=== PATIENT | male | born 1930 | race Caucasian/White ===

== ENCOUNTER 2017-03-28 08:04 | Emergency (ER) | payer MEDICARE, OTHER ==
[~2017-03-28] VITALS: Ht 185.4 cm; Wt 112.3 kg
[~2017-03-28 08:04] MED LIST: ASCO500T8 PO; CALC-504 PO; CETI10CA19 PO; CHOL100047 PO; FLUT16SP2 EA NOSTRIL; GLIP5TAB11 PO; GLUC100015 PO; LACT1CAP73 PO; LEVO25TA7 PO; MAGN400T25 PO; METF500T4 PO; MULT-1243 PO; NITR0.4T38 SL; OMEG100T PO; SIMV80TA62 PO; SOTA80TA22 PO; VITA-115 PO; VITA-282 PO; WARF5TAB76 PO
[2017-03-28 08:05] VITALS: Ht 185.4 cm; Wt 112.3 kg
--- OUTSIDE RECORDS SUMMARY | 2017-03-28 08:09 | XMS REPORT | Continuity of Care Document ---
Author Author [facility] Organization [facility] Address Unknown Phone Unavailable Support Name Relationship Address Phone GINNA MANNING MD Caregiver [address], [place] [phone] CATHLEEN MERCEDES MD Caregiver [address] [facility] [address] [place] [phone] MIGUEL HOGAN Next Of Kin [address] [place] [address] Insurance Providers Payer Name Policy Number Subscriber Name Relationship Medicare [id number] Jeremy Thorpe 20 Self [employer] [id number] Jeremy Thorpe 20 Self Advance Directives Directive Response Recorded Date/Time Dr Ordered Resuscitation Status Full Code 01/30/15 1:08pm Problems No known problems or medical conditions. Medications Medication Dose Route Sig Days/Qty Instructions Order Date Discontinued Date Status Gemfibrozil 600 Mg PO TWICE A DAY 02/01/12 06/06/12 Discontinued Simvastatin 80 Mg PO BEDTIME 02/01/12 03/22/13 Discontinued Glyburide 2.5 Mg PO TWICE A DAY 02/01/12 07/03/12 Discontinued Cetirizine Hcl 10 Mg PO TWICE A DAY 02/01/12 05/15/13 Discontinued Allopurinol 300 Mg PO every other day 06/06/12 03/21/13 Discontinued Warfarin Sodium 5 Mg PO WED,WED,WED,Wed06/06/12 11/14/12 Discontinued Warfarin Sodium 7.5 Mg PO Wednesday, 06/06/12 03/21/13 Discontinued Fluticasone Propionate 1,650 Mcg NS DAILY 06/06/12 03/21/13 Discontinued Beta-Carotene 25,000 Unit PO DAILY 06/06/12 05/16/13 Discontinued Folic Acid/Vitamin B Comp W-C 400 Mcg PO DAILY 06/06/12 03/21/13 Discontinued Glucosamine Hcl/Chondr Álvarez A Na 1 Tab PO TWICE A DAY 06/06/12 Discontinued Multivitamins W-Minerals/Lut 1 Tab PO TWICE A DAY 0.5 Qty 06/06/1206/20 Discontinued Magnesium Oxide 400 Mg PO DAILY 06/06/12 Active Diphenhydramine Hcl 25 Mg PO NEEDED 07/03/12 11/14/12 Discontinued Glipizide 5 Mg PO AC BREAKFAST 07/03/12 05/15/13 Discontinued Daptomycin 500 Mg IV DAILY 07/03/12 11/14/12 Discontinued Prednisone 30 Tab PO DAILY 07/03/12 11/14/12 Discontinued Warfarin Sodium 1 Mg PO DAILY 07/25/12 11/14/12 Discontinued Metformin Hcl 500 Mg PO DAILY 07/25/12 08/08/14 Discontinued Cephalexin Monohydrate 250 Mg PO FOUR TIMES DAILY 11/14/12 03/21/13 Discontinued Warfarin Sodium 5 Mg PO MoWeThFrSu 03/21/13 05/15/13 Discontinued Vitamin B Comp W-C 1 Tab PO DAILY 03/21/13 Active Warfarin Sodium 7.5 Mg PO TuSa 03/22/13 05/15/13 Discontinued [Nitroglycerin] SL NEEDED 03/22/13 05/15/13 Discontinued Simvastatin 40 Mg PO BEDTIME 03/22/13 05/15/13 Discontinued Glipizide 2.5 Mg PO EVENING 03/22/13 05/15/13 Discontinued Glyburide 10 Mg PO TWICE A DAY 05/15/13 01/22/14 Discontinued Simvastatin 80 Mg PO BEDTIME 05/15/13 Active Cetirizine Hcl 10 Mg PO DAILY 05/15/13 Active Nitroglycerin 0.4 Mg SL EVERY 5 MINUTES X 3 PRN ANGINA 05/16/13 Active Levothyroxine Sodium 25 Mcg PO BEFORE BREAKFAST 1 Qty 01/22/14 Active Vitamin E Mixed 400 Unit PO DAILY 01/22/14 Active Calcium Carbonate/Vitamin D3 1 Tab PO DAILY 01/22/14 Active Sotalol HCl 40 Mg PO TWICE A DAY 05/30/14 Active Multivits-Min/FA/Lycopene/Lut 1 Tab PO DAILY 01/30/15 Active Warfarin Sodium 5 Mg PO GIVE AT NOON Take by mouth, 1 time a day (at NOON). 01/30/15 Active Fluticasone Propionate 2 Supai EA NOSTRIL DAILY 01/30/15 Active Glipizide 1 Tab PO EVERY EVENING 01/30/15 Active Glipizide 2 Tab PO AM 01/30/15 Active Glucosamine Sulfate 2Kcl 1 Tab PO TWICE A DAY 01/30/15 Active Metformin HCl 500 Mg PO GIVE WITH BREAKFAST 01/30/15 Active Addison-3 Fatty Acids 150 Mg PO TWICE A DAY 01/30/15 Active Lactobacillus Combination No.4 1 Cap PO DAILY 01/30/15 Active Cholecalciferol (Vitamin D3) 500 Unit PO TWICE A DAY 01/30/15 Active Ascorbic Acid 1 Tab PO DAILY 01/30/15 Active Social History Social History Problem Response Recorded Date/Time Chewing Tobacco Status No 01/19/2014 3:53pm Hx Substance Use No 08/08/2014 2:20pm Hx Alcohol Use No 08/08/2014 2:20pm Has the pt used tobacco in the last 12 months No 08/08/2014 2:20pm Query Response Start Date Stop Date Smoking Status Former smoker Hospital Discharge Instructions No hospital discharge instructions. Plan of Care No plan of care. Functional Status No functional status results. Allergies, Adverse Reactions, Alerts Allergen Type Severity Reaction Status Last Updated Aspirin Allergy Intermediate HIVES Active 08/08/14 Vancomycin Allergy Severe HIVES Active 08/08/14 Immunizations Name Given Type Hx Influenza Vaccination Y 07/16/14 Historical Hx Pneumococcal Vaccination Y FALL 2010 Historical Hx Influenza Vaccination Y 07/16/14 Historical Vital Signs Acute Vital Signs Vital Response Date/Time Temperature (Fahrenheit) 98.2 deg F (96.8 - 99.1) Temperature (Calculated Celsius) 36.62059 degrees C (36.0 - 37.3) Temperature Source Temporal Pulse Rate (adult) 60 bpm (60 - 100) Respiratory Rate 16 breaths/min (10 - 20) O2 Sat by Pulse Oximetry 99 % (90 - 100) Oxygen Delivery Method Room Air Blood Pressure 150/68 mm Hg Blood Pressure Source Automatic Cuff Height 6 ft 2 in Weight 264 lb Body Mass Index 33.0 kg/m^2 Results Test Source Date Result Interp. Ref. Range Comments Activated Partial Thromboplast Time July 03, 2012 9:33am 40.9 SEC H 24 -36 Alanine Aminotransferase (ALT/SGPT) November 14, 2012 6:15pm 34 U/L N 21- 72 Albumin November 14, 2012 6:15pm 3.8 G/DL N 3.5-5.0 Albumin/Globulin Ratio November 14, 2012 6:15pm 1.3 RATIO N 1.1-2.2 Alkaline Phosphatase November 14, 2012 6:15pm 81 U/L N 38-126 Amylase Level July 03, 2012 9:50am 43 U/L N 30-110 Anion Gap August 08, 2014 1:54pm 12 MEQ/L N 5-15 COMMENT NURSE WILL CALL WHEN PATIENT ARRIVES Aspartate Amino Transf (AST/SGOT) November 14, 2012 6:15pm 27 U/L N 17- 59 BUN/Creatinine Ratio August 08, 2014 1:54pm 19 RATIO N 6-26 COMMENT NURSE WILL CALL WHEN PATIENT ARRIVES Band Neutrophils # June 21, 2014 2:45pm 0.4 T/MM3 - Band Neutrophils % June 21, 2014 2:45pm 6.0 % N 0-6 Basophils # (Auto) August 08, 2014 1:54pm 0.0 T/MM3 N 0-0.2 COMMENT NURSE WILL CALL WHEN PATIENT ARRIVES Basophils (%) (Auto) August 08, 2014 1:54pm 0.0 % N 0-2 COMMENT NURSE WILL CALL WHEN PATIENT ARRIVES Blood Urea Nitrogen August 08, 2014 1:54pm 17.0 MG/DL N 9-20 COMMENT NURSE WILL CALL WHEN PATIENT ARRIVES C-Reactive Protein July 12, 2014 7:20am 8.1 MG/L N 0-9 Calcium Level August 08, 2014 1:54pm 9.2 MG/DL N 8.4-10.2 COMMENT NURSE WILL CALL WHEN PATIENT ARRIVES Calculated Osmolality August 08, 2014 1:54pm 275 MOSM/KG N 261-280 COMMENT NURSE WILL CALL WHEN PATIENT ARRIVES Carbon Dioxide Level August 08, 2014 1:54pm 25 MEQ/L N 22-30 COMMENT NURSE WILL CALL WHEN PATIENT ARRIVES Chemistry Specimen Hemolysis August 08, 2014 1:54pm < 15 0-25 0-25: No Hemolysis.26-70: Slight Hemolysis - can falsely elevate K and Urine Protein. 71-285: Moderate Hemolysis - can falsely elevate K, Troponin I, CA 19-9, PTH, CSF GLucose, and Urine Protein, and can falsely decrease Phenytoin. 286-999: Gross Hemolysis - can falsely elevate K, Troponin I, CA 19-9, PTH, CSF Glucose, and Urine Protine, and can falsely decrease Phenytoin. Recommend specimen recollection. Chloride Level August 08, 2014 1:54pm 103 MEQ/L N 98-107 COMMENT NURSE WILL CALL WHEN PATIENT ARRIVES Conjugated Bilirubin July 03, 2012 9:50am 0.00 MG/DL N 0.00-0.30 Creatine Kinase MB February 03, 2012 3:20am 0.6 NG/ML N 0-3.4 Creatinine August 08, 2014 1:54pm 0.9 MG/DL N 0.8-1.5 COMMENT NURSE WILL CALL WHEN PATIENT ARRIVES Eosinophils # (Auto) August 08, 2014 1:54pm 0.3 T/MM3 N 0-0.5 COMMENT NURSE WILL CALL WHEN PATIENT ARRIVES Eosinophils # (Manual) June 21, 2014 2:45pm 0.4 T/MM3 N 0-0.5 Eosinophils % (Manual) June 21, 2014 2:45pm 5.0 % H 0-4 Eosinophils (%) (Auto) August 08, 2014 1:54pm 4.8 % H 0-4 COMMENT NURSE WILL CALL WHEN PATIENT ARRIVES Erythrocyte Sedimentation Rate July 12, 2014 7:20am 9 MM/HR N 0-15 Free Thyroxine June 07, 2012 5:10am 1.32 NG/DL N 0.78-2.19 COMMENT USE BLOOD IN LAB Globulin November 14, 2012 6:15pm 3.0 G/DL N 2.4-3.6 Glomerular Filtration Rate Calc August 08, 2014 1:54pm 81 - COMMENT NURSE WILL CALL WHEN PATIENT ARRIVES Glucometer January 31, 2015 7:11am 192 mg/dL H 75-110 Glucose Level August 08, 2014 1:54pm 169 MG/DL H 75-110 COMMENT NURSE WILL CALL WHEN PATIENT ARRIVES Hematocrit August 08, 2014 1:54pm 37.2 % L 41-53 COMMENT NURSE WILL CALL WHEN PATIENT ARRIVES Hemoglobin August 08, 2014 1:54pm 12.4 GM/DL L 13.5-17.5 COMMENT NURSE WILL CALL WHEN PATIENT ARRIVES Icterus Index August 08, 2014 1:54pm < 2 0-7 COMMENT NURSE WILL CALL WHEN PATIENT ARRIVES Immature Granulocyte # (Auto) August 08, 2014 1:54pm 0.01 T/MM3 N 0.00- 0.03 COMMENT NURSE WILL CALL WHEN PATIENT ARRIVES Immature Granulocyte % (Auto) August 08, 2014 1:54pm 0.2 % N 0.0-0.5 COMMENT NURSE WILL CALL WHEN PATIENT ARRIVES Lipase November 14, 2012 6:15pm 102 U/L N 23-300 Lymphocytes # (Auto) August 08, 2014 1:54pm 1.3 T/MM3 N 1-4.8 COMMENT NURSE WILL CALL WHEN PATIENT ARRIVES Lymphocytes # (Manual) June 21, 2014 2:45pm 0.2 T/MM3 L 1-4.8 Lymphocytes % (Manual) June 21, 2014 2:45pm 3.0 % L 23-45 Lymphocytes (%) (Auto) August 08, 2014 1:54pm 22.4 % L 23-45 COMMENT NURSE WILL CALL WHEN PATIENT ARRIVES Magnesium Level January 23, 2014 5:18am 1.9 MG/DL N 1.6-2.3 Mean Corpuscular Hemoglobin August 08, 2014 1:54pm 30.2 UUG N 26-34 COMMENT NURSE WILL CALL WHEN PATIENT ARRIVES Mean Corpuscular Hemoglobin Concent August 08, 2014 1:54pm 33.3 GM/DL N 31-37 COMMENT NURSE WILL CALL WHEN PATIENT ARRIVES Mean Corpuscular Volume August 08, 2014 1:54pm 90.5 UM3 N 80-100 COMMENT NURSE WILL CALL WHEN PATIENT ARRIVES Mean Platelet Volume August 08, 2014 1:54pm 10.2 UM3 N 9.4-12.4 COMMENT NURSE WILL CALL WHEN PATIENT ARRIVES Monocytes # (Auto) August 08, 2014 1:54pm 0.6 T/MM3 N 0-0.8 COMMENT NURSE WILL CALL WHEN PATIENT ARRIVES Monocytes # (Manual) June 21, 2014 2:45pm 0.6 T/MM3 N 0-0.8 Monocytes % (Manual) June 21, 2014 2:45pm 9.0 % N 0-9.0 Monocytes (%) (Auto) August 08, 2014 1:54pm 9.7 % H 0-9.0 COMMENT NURSE WILL CALL WHEN PATIENT ARRIVES Neutrophils # (Auto) August 08, 2014 1:54pm 3.7 T/MM3 N 1.8-7.7 COMMENT NURSE WILL CALL WHEN PATIENT ARRIVES Neutrophils # (Manual) June 21, 2014 2:45pm 3.5 T/MM3 N 1.8-7.7 Neutrophils % (Manual) June 21, 2014 2:45pm 48.0 % N 33-66 Neutrophils (%) (Auto) August 08, 2014 1:54pm 62.9 % N 33-66 COMMENT NURSE WILL CALL WHEN PATIENT ARRIVES Platelet Count August 08, 2014 1:54pm 184 T/MM3 N 130-400 COMMENT NURSE WILL CALL WHEN PATIENT ARRIVES Potassium Level August 08, 2014 1:54pm 4.2 MEQ/L N 3.6-5 COMMENT NURSE WILL CALL WHEN PATIENT ARRIVES Prothromb Time International Ratio May 31, 2014 9:50am 1.23 H 0.81- 1.09 THERAPUTIC RANGE=2.00-3.00 FOR ANTI-THROMBOSIS THERAPUTIC RANGE=2.50- 3.50 FOR IMPLANTED VALVE RDW Standard Deviation August 08, 2014 1:54pm 44.0 FL N 36.9-50.2 COMMENT NURSE WILL CALL WHEN PATIENT ARRIVES Reactive Lymphocytes # June 21, 2014 2:45pm 2.1 T/MM3 H 0-0 Reactive Lymphocytes % June 21, 2014 2:45pm 29.0 % H 0-0 Red Blood Count August 08, 2014 1:54pm 4.11 M/MM3 L 4.50-5.90 COMMENT NURSE WILL CALL WHEN PATIENT ARRIVES Sodium Level August 08, 2014 1:54pm 140 MEQ/L N 134-144 COMMENT NURSE WILL CALL WHEN PATIENT ARRIVES Thyroid Stimulating Hormone (TSH) June 07, 2012 5:10am 2.46 MIU/L N 0.47 -4.68 COMMENT USE BLOOD IN LAB Total Bilirubin November 14, 2012 6:15pm 0.40 MG/DL N 0.20-1.30 Total Creatine Kinase May 16, 2014 10:30am 45 U/L L 55-170 Total Protein November 14, 2012 6:15pm 6.8 G/DL N 6.3-8.2 Troponin I February 03, 2012 9:30am 0.018 ng/ml N 0-0.12 Turbidity August 08, 2014 1:54pm < 20 0-20 COMMENT NURSE WILL CALL WHEN PATIENT ARRIVES Unconjugated Bilirubin July 03, 2012 9:50am 0.00 MG/DL N 0.00-1.10 Urinalysis Comment November 14, 2012 7:55pm Microscopic not ind. - Has specimen been collected/obtained? Y Urine Bilirubin November 14, 2012 7:55pm Negative - Has specimen been collected/obtained? Y Urine Blood November 14, 2012 7:55pm Negative - Has specimen been collected/obtained? Y Urine Collection Type November 14, 2012 7:55pm Voided - Has specimen been collected/obtained? Y Urine Color November 14, 2012 7:55pm Yellow - Has specimen been collected/obtained? Y Urine Glucose (UA) November 14, 2012 7:55pm Negative - Has specimen been collected/obtained? Y Urine Ketones November 14, 2012 7:55pm Negative - Has specimen been collected/obtained? Y Urine Leukocyte Esterase November 14, 2012 7:55pm Negative - Has specimen been collected/obtained? Y Urine Microscopic Not Indicated February 01, 2012 2:35pm Not indicated - Has specimen been collected/obtained? Y Urine Nitrite November 14, 2012 7:55pm Negative - Has specimen been collected/obtained? Y Urine Protein November 14, 2012 7:55pm Negative - Has specimen been collected/obtained? Y Urine Specific [place] November 14, 2012 7:55pm 1.010 L - Has specimen been collected/obtained? Y Urine Turbidity November 14, 2012 7:55pm Clear - Has specimen been collected/obtained? Y Urine Urobilinogen November 14, 2012 7:55pm Normal EU/DL - Has specimen been collected/obtained? Y Urine pH November 14, 2012 7:55pm 7.0 - Has specimen been collected/ obtained? Y Vancomycin Level Trough June 28, 2012 8:10am 10.33 UG/ML L 15-20 White Blood Count August 08, 2014 1:54pm 5.9 T/MM3 N 4.5-11.0 COMMENT NURSE WILL CALL WHEN PATIENT ARRIVES Gram Stain Foot, Surgical Site-Right May 31, 2014 12:40pm Gram Stain Foot, Non-Surgical Site-Right May 15, 2014 12:00pm Name: JEREMY THORPE Unit #: [id number] : 1930 Sex: M Loc / Svc: [facility] DOS: 01/21/15 Signed Report #: [id number] DIAGNOSTIC IMAGING REPORT TYPE OF EXAM: ESOPHOGRAM Dictated By: MCKENNA MERCEDES MD ESOPHAGRAM: Technique: After ingesting air crystals, the patient swallowed thick and thin barium without difficulty. Fluoroscopic imaging was obtained in the upright LPO , supine AP, and right lateral positions. Findings: There is delayed emptying of barium from the esophagus to the stomach. No obvious stricture was identified at the GE junction during this study, however, an EGD could be performed for further evaluation. The remainder of the esophagus is negative. There is no filling defect to suggest a mass. The cricopharyngeus muscle relaxes completely. There is no Zenker's diverticulum. No hiatal hernia or gastroesophageal reflux was visualized. Impression: Delayed emptying of barium from the esophagus to the stomach. This could represent a stricture. An EGD could be performed for further evaluation. Mckenna Hernandez RPA/RA performed this under my direct supervision. . Procedures Procedure Status Date Provider(s) CONTRAST X-RAY ESOPHAGUS completed 01/21/15 Esophagogastroduodenoscopy (EGD) with heater probe therapy completed CATHLEEN MERCEDES MD Encounters Encounter Location Date/Time Registered [facility] 01/21/15 7:55am
--- OUTSIDE RECORDS SUMMARY | 2017-03-28 08:09 | XMS REPORT | Continuity of Care Document ---
Author Author [facility] Organization [facility] Address Unknown Phone Unavailable Support Name Relationship Address Phone GINNA MANNING MD Caregiver [address] [place] [address] NARESH SANFORD MD Caregiver [facility] [address] [facility] [place], [place] [address] MIGUEL HOGAN Next Of Kin [address] [place] [address] Insurance Providers Payer Name Policy Number Subscriber Name Relationship Medicare [id number] Jeremy Thorpe 20 Self [place] [id number] Jeremy Thorpe 20 Self Problems No known problems or medical conditions. [...] Oxide 400 Mg PO DAILY 06/06/12 Active Cholecalciferol (Vitamin D3) 1,000 Unit PO DAILY 06/06/12 Active Diphenhydramine Hcl 25 Mg PO NEEDED 07/03/12 11/14/12 Discontinued Glipizide 5 Mg PO AC BREAKFAST 07/03/12 05/15/13 Discontinued Daptomycin 500 Mg IV DAILY 07/03/12 11/14/12 Discontinued Prednisone 30 Tab PO DAILY 07/03/12 11/14/12 Discontinued Warfarin Sodium 1 Mg PO DAILY 07/25/12 11/14/12 Discontinued Metformin Hcl 500 Mg PO DAILY 07/25/12 Active Cephalexin Monohydrate 250 Mg PO FOUR TIMES [...] PO TWICE A DAY 05/15/13 01/22/14 Discontinued Multivitamins 1 Tab PO DAILY 05/15/13 Active Simvastatin 40 Mg PO BEDTIME 05/15/13 Active Cetirizine Hcl 10 Mg PO DAILY 05/15/13 Active Warfarin Sodium 5 Mg PO DAILY 7.5 MG 05/15/13 Active Ubidecarenone 100 Mg PO DAILY 05/16/13 Active Ascorbic Acid 1,000 Mg PO TWICE A DAY 05/16/13 Active Glucosa Álvarez 2KCL/Chondroitin Álvarez 1,200 Mg PO TWICE A DAY 05/16/13 Active Nitroglycerin 0.4 Mg SL NEEDED 05/16/13 Active Fluticasone Propionate 2 [place] NS DAILY 01/22/14 Active Glipizide 5 Mg PO BEFORE BREAKFAST 01/22/14 Active Glipizide 2.5 Mg PO AC SUPPER 01/22/14 Active Levothyroxine Sodium 25 Mcg PO BEFORE BREAKFAST 1 Qty 01/22/14 Active Lactobacillus Rhamnosus Gg 1 Each PO DAILY 01/22/14 Active Fish Oil/Fat No.8/Hrb Comb.137 1,200 Mg PO TWICE A DAY 01/22/14 Active Vitamin E Mixed 400 Unit PO DAILY 01/22/14 Active Calcium Carbonate/Vitamin D3 1 Tab PO TWICE A DAY 01/22/14 Active Sotalol HCl 40 Mg PO TWICE A DAY 05/30/14 Active Social History Social History Problem Response Recorded Date/Time Smoking Status Former smoker 05/16/2014 2:35pm When did patient STOP smoking? 40 YEARS AGO 05/16/2014 2:35pm Chewing Tobacco Status No 01/19/2014 3:53pm Hx Substance Use No 01/19/2014 3:53pm Hx Alcohol Use No 01/19/2014 3:53pm Has the pt used tobacco in the last 12 months No 05/31/2014 10:04am Query Response Start Date Stop Date Smoking Status Former smoker Hospital Discharge Instructions No hospital discharge instructions. Plan of Care No plan of care. Functional Status No functional status results. Allergies, Adverse Reactions, Alerts Allergen Type Severity Reaction Status Last Updated Aspirin Allergy Intermediate HIVES Active 05/16/13 Vancomycin Allergy Severe HIVES Active 05/16/13 Immunizations Name Given Type Hx Influenza Vaccination Y 08/2013 Historical Hx Pneumococcal Vaccination Y FALL 2010 Historical Hx Influenza Vaccination Y 08/2013 Historical Vital Signs Acute Vital Signs Vital Response Date/Time Temperature (Fahrenheit) 96.6 deg F (96.8 - 99.1) Temperature (Calculated Celsius) 35.05601 degrees C (36.0 - 37.3) Temperature Source Temporal Pulse Rate (adult) 62 bpm (60 - 100) Respiratory Rate 16 breaths/min (10 - 20) O2 Sat by Pulse Oximetry 97 % (90 - 100) Oxygen Delivery Method Room Air Blood Pressure 144/83 mm Hg Blood Pressure Source Automatic Cuff Height 6 ft 2 in Weight 245 lb Body Mass Index 31.0 kg/m^2 Results Test Source Date Result Interp. [...] 9:50am 43 U/L N 30-110 Anion Gap June 21, 2014 2:45pm 10 MEQ/L N 5-15 Aspartate Amino Transf (AST/SGOT) November 14, 2012 6:15pm 27 U/L N 17- 59 BUN/Creatinine Ratio June 21, 2014 2:45pm 23 RATIO N 6-26 Band Neutrophils # June 21, 2014 2:45pm 0.4 T/MM3 - Band Neutrophils % June 21, 2014 2:45pm 6.0 % N 0-6 Basophils # (Auto) May 31, 2014 9:50am 0.0 T/MM3 N 0-0.2 COMMENT NSC WILL CALL Basophils (%) (Auto) May 31, 2014 9:50am 0.0 % N 0-2 COMMENT NSC WILL CALL Blood Urea Nitrogen June 21, 2014 2:45pm 23.0 MG/DL H 9-20 C-Reactive Protein June 21, 2014 2:45pm 6.8 MG/L N 0-9 Calcium Level June 21, 2014 2:45pm 9.0 MG/DL N 8.4-10.2 Calculated Osmolality June 21, 2014 2:45pm 275 MOSM/KG N 261-280 Carbon Dioxide Level June 21, 2014 2:45pm 29 MEQ/L N 22-30 Chemistry Specimen Hemolysis June 21, 2014 2:45pm < 15 0-25 0-25: No Hemolysis.26-70: Slight [...] decrease Phenytoin. Recommend specimen recollection. Chloride Level June 21, 2014 2:45pm 101 MEQ/L N 98-107 Conjugated Bilirubin July 03, 2012 9:50am 0.00 MG/DL N 0.00-0.30 Creatine Kinase MB February 03, 2012 3:20am 0.6 NG/ML N 0-3.4 Creatinine June 21, 2014 2:45pm 1.0 MG/DL N 0.8-1.5 Eosinophils # (Auto) May 31, 2014 9:50am 0.2 T/MM3 N 0-0.5 COMMENT NSC WILL CALL Eosinophils # (Manual) June 21, 2014 2:45pm 0.4 T/MM3 N 0-0.5 Eosinophils % (Manual) June 21, 2014 2:45pm 5.0 % H 0-4 Eosinophils (%) (Auto) May 31, 2014 9:50am 3.8 % N 0-4 COMMENT NSC WILL CALL Erythrocyte Sedimentation Rate June 21, 2014 2:45pm 10 MM/HR N 0-15 Free Thyroxine June 07, 2012 5:10am 1.32 NG/DL N 0.78-2.19 COMMENT USE BLOOD IN LAB Globulin November 14, 2012 6:15pm 3.0 G/DL N 2.4-3.6 Glomerular Filtration Rate Calc June 21, 2014 2:45pm 72 - Glucometer May 31, 2014 1:40pm 171 mg/dL H 75-110 Glucose Level June 21, 2014 2:45pm 130 MG/DL H 75-110 Hematocrit June 21, 2014 2:45pm 37.8 % L 41-53 Hemoglobin June 21, 2014 2:45pm 12.7 GM/DL L 13.5-17.5 Icterus Index June 21, 2014 2:45pm < 2 0-7 Immature Granulocyte # (Auto) May 31, 2014 9:50am 0.01 T/MM3 N 0.00- 0.03 COMMENT NSC WILL CALL Immature Granulocyte % (Auto) May 31, 2014 9:50am 0.2 % N 0.0-0.5 COMMENT NSC WILL CALL Lipase November 14, 2012 6:15pm 102 U/L N 23-300 Lymphocytes # (Auto) May 31, 2014 9:50am 1.4 T/MM3 N 1-4.8 COMMENT NSC WILL CALL Lymphocytes # (Manual) June 21, 2014 2:45pm 0.2 T/MM3 L 1-4.8 Lymphocytes % (Manual) June 21, 2014 2:45pm 3.0 % L 23-45 Lymphocytes (%) (Auto) May 31, 2014 9:50am 22.1 % L 23-45 COMMENT NSC WILL CALL Magnesium Level January 23, 2014 5:18am 1.9 MG/DL N 1.6-2.3 Mean Corpuscular Hemoglobin June 21, 2014 2:45pm 30.2 UUG N 26-34 Mean Corpuscular Hemoglobin Concent June 21, 2014 2:45pm 33.6 GM/DL N 31-37 Mean Corpuscular Volume June 21, 2014 2:45pm 90.0 UM3 N 80-100 Mean Platelet Volume June 21, 2014 2:45pm 9.9 UM3 N 9.4-12.4 Monocytes # (Auto) May 31, 2014 9:50am 0.6 T/MM3 N 0-0.8 COMMENT NSC WILL CALL Monocytes # (Manual) June 21, 2014 2:45pm 0.6 T/MM3 N 0-0.8 Monocytes % (Manual) June 21, 2014 2:45pm 9.0 % N 0-9.0 Monocytes (%) (Auto) May 31, 2014 9:50am 9.1 % H 0-9.0 COMMENT NSC WILL CALL Neutrophils # (Auto) May 31, 2014 9:50am 4.1 T/MM3 N 1.8-7.7 COMMENT NSC WILL CALL Neutrophils # (Manual) June 21, 2014 2:45pm 3.5 T/MM3 N 1.8-7.7 Neutrophils % (Manual) June 21, 2014 2:45pm 48.0 % N 33-66 Neutrophils (%) (Auto) May 31, 2014 9:50am 64.8 % N 33-66 COMMENT NSC WILL CALL Platelet Count June 21, 2014 2:45pm 235 T/MM3 N 130-400 Potassium Level June 21, 2014 2:45pm 4.4 MEQ/L N 3.6-5 Prothromb Time International Ratio May 31, 2014 9:50am 1.23 H 0.81- 1.09 THERAPUTIC RANGE=2.00-3.00 FOR ANTI-THROMBOSIS THERAPUTIC RANGE=2.50- 3.50 FOR IMPLANTED VALVE RDW Standard Deviation June 21, 2014 2:45pm 43.1 FL N 36.9-50.2 Reactive Lymphocytes # June 21, 2014 2:45pm 2.1 T/MM3 H 0-0 Reactive Lymphocytes % June 21, 2014 2:45pm 29.0 % H 0-0 Red Blood Count June 21, 2014 2:45pm 4.20 M/MM3 L 4.50-5.90 Sodium Level June 21, 2014 2:45pm 140 MEQ/L N 134-144 Thyroid Stimulating Hormone (TSH) June 07, 2012 5:10am 2.46 MIU/L N 0.47 -4.68 COMMENT USE BLOOD IN LAB Total Bilirubin November 14, 2012 6:15pm 0.40 MG/DL N 0.20-1.30 Total Creatine Kinase May 16, 2014 10:30am 45 U/L L 55-170 Total Protein November 14, 2012 6:15pm 6.8 G/DL N 6.3-8.2 Troponin I February 03, 2012 9:30am 0.018 ng/ml N 0-0.12 Turbidity June 21, 2014 2:45pm < 20 0-20 Unconjugated Bilirubin July 03, 2012 9:50am 0.00 [...] Has specimen been collected/obtained? Y Urine Specific [place] November 14, 2012 7:55pm 1.010 L - [...] 10.33 UG/ML L 15-20 White Blood Count June 21, 2014 2:45pm 7.2 T/MM3 N 4.5-11.0 Gram Stain Foot, Non-Surgical Site-Right May 15, 2014 12:00pm Gram Stain Foot, Surgical Site-Right May 31, 2014 12:40pm Name: JEREMY THORPE Unit #: [id number] : 1930 Sex: M Loc / Svc: SHANIA DOS: 05/16/14 Signed Report #: [id number] DIAGNOSTIC IMAGING REPORT TYPE OF EXAM: PICC LINE INSERTION w FLUORO Dictated By: MCKENNA MERCEDES MD PICC Line insertion: After discussing the details of the procedure, including risks, the patient wished to proceed. Informed consent was obtained. Sterile technique, local Xylocaine anesthesia, and sonographic guidance was used to access the right basilic vein. A .018 guidewire was advanced into the vein. Then using fluoroscopic guidance, a single lumen 4-Angolan PICC line was advanced with the tip placed within the SVC. Internal catheter length is 46 cm. A fluoroscopic image was then taken and archived. I was able to aspirate blood and inject freely through the port. The procedure was completed without complication. Following this, the patient was escorted to infusion therapy for his treatment. Impression: Successful right-sided PICC line placement in the right basilic vein. Mckenna Hernandez RPA/RA performed this under my personal supervision. . Procedures Procedure Status Date Provider(s) BROOK BONE 20 SQ CM/< completed 05/31/14 CHAVA MASON MD, FACS, CWS Encounters Encounter Location Date/Time Discharged [facility] 06/21/14 3:00pm Registered Clinic [facility] 06/19/14 8:21am Registered Clinic [facility] 06/15/14 9:23am Registered Clinic [facility] 06/13/14 9:05am Registered Clinic [facility] 06/12/14 8:35am Registered Clinic [facility] 06/05/14 8:27am Registered Clinic [facility] 05/30/14 8:57am Registered Clinic [facility] 05/29/14 8:23am Registered Clinic [facility] 05/22/14 1:29pm Registered Clinic [facility] 05/16/14 8:55am Registered Clinic [facility] 05/15/14 12:18pm Registered Clinic [facility] 05/15/14 11:08am Registered Clinic [facility] 05/08/14 8:30am Registered Clinic [facility] 04/24/14 8:31am Registered Clinic [facility] 04/10/14 11:26am Registered Clinic [facility] 04/04/14 10:50am Registered Clinic [facility] 03/28/14 8:59am
--- OUTSIDE RECORDS SUMMARY | 2017-03-28 08:09 | XMS REPORT | Summary of Care ---
Author Author Robbi Butt M.D. Organization Unknown Address [address] [place] [address] [place] [address] Phone Unavailable Care Team Providers Care Municipal Court Judge Name Role Phone Robbi Butt M.D. Unavailable Unavailable Kevin Yin Unavailable Unavailable Functional Status Name Dates Details Functional status health issues are not documented Status: Name Dates Details Cognitive status health issues are not documented Status: Problems Name Dates Details H/O prostate cancer (V10.46, Z85.46) Status: Active H/O therapeutic radiation (V15.3, Z92.3) Status: Active BPH with obstruction/lower urinary tract symptoms (600.01, N40.1) Status: Active Medications Name Dates Details Warfarin Sodium 5 MG Oral Tablet Active Vitamin D3 1000 UNIT Oral Tablet * Refills: 0 Active Oyster Shell Calcium + D 500-125 MG-IU TABS * Refills: 0 Active Fish Oil CAPS * Refills: 0 Active Centrum Silver Oral Tablet Chewable * Refills: 0 Active Glucosamine Chondr Complex CAPS * Refills: 0 Active Super B Complex TABS * Refills: 0 Active Vitamin E 400 UNIT Oral Capsule * Refills: 0 Active Vitamin C 500 MG Oral Capsule * Refills: 0 Active Flonase 50 MCG/ACT SUSP * Refills: 0 Active Zyrtec 10 MG TABS * Refills: 0 Active Beta Carotene 56883 UNIT Oral Capsule * Refills: 0 Active GlipiZIDE 5 MG Oral Tablet * Refills: 0 Active MetFORMIN HCl - 500 MG Oral Tablet * Refills: 0 Active Simvastatin 80 MG Oral Tablet * Refills: 0 Active Allergies and Adverse Reactions Name Dates Details No Known Allergies (Allergy) Status: Active Past Medical History Name Dates Details History of cardiac arrhythmia (V12.59, Z86.79) Status: Resolved History of Dyslipidemia (272.4, E78.5) Status: Resolved 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, N40.1) Status: Resolved History of hypertension (V12.59, Z86.79) Status: Resolved History of malignant neoplasm of prostate (V10.46, Z85.46) Status: Resolved History of neuropathy (V12.49, Z86.69) Status: Resolved 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, E29.1) Status: Resolved History of type 2 diabetes mellitus (V12.29, Z86.39) Status: Resolved Procedures Procedure Dates Details History of Nasal Septal Deviation Repair History of Surgery Vas Deferens Vasectomy History of Surg Prostate Transureth Dest Tissue Microwave Thermotherapy History of Foot Surgery History of Biopsy Of The Prostate Needle History of Pacemaker Placement History of Radiation Therapy PSA ( PROSTATE SPECIFIC ANTIGEN) 3100 Ordered: 03-Feb-2017 Immunization Name Dates Details Immunizations not documented Family History Name Dates Details Family history of kidney disease (V18.69, Z84.1) Status: Active Name Dates Details Family history of diabetes mellitus (V18.0, Z83.3) Status: Active Social History Name Dates Details - Status: Name Dates Details Never smoker Vital Signs Date Test Result Details 03-Feb-2017 13:11 BP Systolic 133 mm[Hg] Status: Comments: Location: ; Position: BP Diastolic 70 mm[Hg] Status: Comments: Location: ; Position: Heart Rate 64 /min Status: Comments: Location: ; Results Date Description Value Details Results not documented Plan of Care Name Dates Details Planned Observations Planned Goals not documented Interventions Provided Labs/Procedures/Imaging* PSA ( PROSTATE SPECIFIC ANTIGEN) 3100; To be Done: 03 Feb 2017 Instructions Name Dates Details Instructions not documented Encounters Appointment; Robbi Butt M.D. Encounter Diagnosis: Problem not documented On 05-Feb-2016 09:30
--- OUTSIDE RECORDS SUMMARY | 2017-03-28 08:09 | XMS REPORT | Summary of Care ---
Author Author Robbi Butt M.D. Unknown Address [address] [facility] [place] [address] Phone Unavailable Care Team Providers Care Foundry Worker General Name Role Phone Kevin Yin Unavailable Unavailable Functional Status Name [...] TABS * Refills: 0 Active Beta Carotene 98709 UNIT Oral Capsule * Refills: 0 Active [...] of Pacemaker Placement History of Radiation Therapy Procedures not documented Immunization Name Dates Details Immunizations not documented [...] Location: ; Results Date Description Value Details 04-Feb-2017 08:52 PSA ( PROSTATE SPECIFIC ANTIGEN) 3100 PROSTATE SPECIFIC ANTIGEN 0.040 ng/mL Range: 0.000-4.000 Plan of Care Name Dates Details Planned Observations Planned Goals not documented Instructions Name Dates Details Instructions not documented Encounters Appointment; Robbi Butt M.D. Encounter Diagnosis: Problem not documented On 03-Feb-2017 13:15 Appointment; Robbi Butt M.D. Encounter Diagnosis: Problem not documented On 05-Feb-2016 09:30
--- OUTSIDE RECORDS SUMMARY | 2017-03-28 08:09 | XMS REPORT | Continuity of Care Document ---
Author Author [facility] Organization [facility] Address Unknown Phone Unavailable Support Name Relationship Address Phone GINNA MANNING MD Caregiver [address] [place] [address] KIAH ADAM MD Caregiver [facility] [address] [place] [address] , [address] [place] [address] MIGUEL HOGAN Next Of Kin [address] [place] [address] Insurance Providers Payer Name Policy Number Subscriber Name Relationship Medicare [id number] Jeremy Thorpe 20 Self [place] [id number] Jeremy Thorpe 20 Self Advance Directives Directive Response Recorded Date/Time Ordered Resuscitation Status Full Code 08/08/14 9:41am Problems No known problems or medical conditions. [...] Mg PO DAILY 7.5 MG 05/15/13 Active Ascorbic Acid 1,000 Mg PO TWICE A DAY 05/16/13 Active Glucosa Álvarez 2KCL/Chondroitin Álvarez 1,200 Mg PO TWICE A DAY 05/16/13 Active Nitroglycerin 0.4 Mg SL NEEDED 05/16/13 Active Fluticasone Propionate 2 [place] NS DAILY 01/22/14 Active Glipizide 5 Mg PO BEFORE MEALS TWICE A DAY 01/22/14 Active Levothyroxine Sodium 25 Mcg PO [...] Mg PO TWICE A DAY 05/30/14 Active Warfarin Sodium 7.5 Mg PO 1700 Take 1 tablet, by mouth, 1 time a day ( at 5 pm). 08/08/14 Active Social History Social History Problem Response Recorded Date/Time Smoking Status Former smoker 05/16/2014 2:35pm When did patient START smoking? AGE 22 08/08/2014 2:20pm When did patient STOP smoking? AGE 42 08/08/2014 2:20pm Chewing Tobacco Status No 01/19/2014 3:53pm Hx [...] Vital Signs Vital Response Date/Time Temperature (Fahrenheit) 97.0 deg F (96.8 - 99.1) Temperature (Calculated Celsius) 36.23636 degrees C (36.0 - 37.3) Temperature Source Temporal Pulse Rate (adult) 60 bpm (60 - 100) Respiratory Rate 18 breaths/min (10 - 20) O2 Sat by Pulse Oximetry 98 % (90 - 100) Oxygen Delivery Method Room Air Blood Pressure 153/74 mm Hg Blood Pressure Source Automatic Cuff Height 6 ft 2 in Weight 252 lb Body Mass Index 32.0 kg/m^2 Results Test Source Date Result Interp. [...] NURSE WILL CALL WHEN PATIENT ARRIVES Glucometer May 31, 2014 1:40pm 171 mg/dL H 75-110 Glucose Level August 08, [...] Has specimen been collected/obtained? Y Urine Specific [place] November 14, 2012 7:55pm 1.010 L - [...] 2014 12:00pm Name: JEREMY THORPE Unit #: [id number] : 1930 Sex: M Loc / [facility] [place]: [facility] DOS: 05/16/14 Signed Report #: [id number] DIAGNOSTIC IMAGING REPORT TYPE OF EXAM: PICC [...] Then using fluoroscopic guidance, a single lumen 4-[place]anz[place] PICC line was advanced with the tip [...] placement in the right basilic vein. Mckenna Hernandez, RPA/RA performed this under my personal supervision. . Procedures Procedure Status Date Provider(s) BROOK BONE 20 SQ CM/< completed 05/31/14 CHAVA MASON MD, FACS, CWS Encounters Encounter Location Date/Time Departed [facility] 08/08/14 1:15pm Registered [facility] 07/31/14 9:44am Registered [facility] 07/17/14 8:24am Registered [facility] 07/11/14 8:49am Registered [facility] 07/03/14 8:29am Registered [facility] 06/26/14 8:39am Registered [facility] 06/19/14 8:21am Registered [facility] 06/15/14 9:23am Registered [facility] 06/13/14 9:05am Registered [facility] 06/12/14 8:35am Registered [facility] 06/05/14 8:27am Registered [facility] 05/30/14 8:57am Registered [facility] 05/29/14 8:23am Registered [facility] 05/22/14 1:29pm Discharged [facility] 05/16/14 1:03pm Registered [facility] 05/16/14 8:55am Registered [facility] 05/15/14 12:18pm Registered Clinic [facility] 05/15/14 11:08am
--- OUTSIDE RECORDS SUMMARY | 2017-03-28 08:09 | XMS REPORT | Summary of Care ---
Author Author Robbi Butt M.D. Organization Unknown Address [address] [place] [address] [place] [address] Phone Unavailable Care Team Providers Care Ore Buyer Name Role Phone Robbi Butt M.D. Unavailable [...] TABS * Refills: 0 Active Beta Carotene 50605 UNIT Oral Capsule * Refills: 0 Active [...]
--- OUTSIDE RECORDS SUMMARY | 2017-03-28 08:10 | XMS REPORT | Continuity of Care Document ---
Author Author [facility] Organization [facility] Address Unknown Phone Unavailable Support Name Relationship Address Phone GINNA MANNING MD Caregiver [address] [place] [address] CHAVA MASON FACS, MD Caregiver [address] [place] [address] [address] [place] [address] [phone] MIGUEL HOGAN Next Of Kin [address] [place] [address] Insurance Providers Payer Name Policy Number Subscriber Name Relationship Medicare [id number] Jeremy Thorpe 20 Self [place] [id number] Jeremy Thorpe 20 Self Advance Directives Directive Response Recorded Date/Time Advanced Directives Type Living Will DPOA for Healthcare 05/30/14 2:41pm Ordered Resuscitation Status Full Code 05/30/14 3:37pm Resuscitation Documents on File Yes 05/30/14 2:41pm Problems No known problems or medical conditions. [...] 03/21/13 Discontinued Warfarin Sodium 5 Mg PO E,WED,WED,Wed06/06/12 11/14/12 Discontinued Warfarin Sodium 7.5 Mg PO [...] SL NEEDED 05/16/13 Active Fluticasone Propionate 2 [place] NS DAILY 01/22/14 Active Glipizide 5 Mg [...] Date/Time Smoking Status Former smoker 05/16/2014 2:35pm Chewing Tobacco Status No 01/19/2014 [...] Vital Signs Vital Response Date/Time Temperature (Fahrenheit) 97.3 deg F (96.8 - 99.1) Temperature (Calculated Celsius) 36.29396 degrees C (36.0 - 37.3) Temperature Source Temporal Pulse Rate (adult) 64 bpm (60 - 100) Respiratory Rate 16 breaths/min (10 - 20) O2 Sat by Pulse Oximetry 95 % (90 - 100) Blood Pressure 122/67 mm Hg Blood Pressure Source Automatic Cuff Height 6 ft 2 in Weight 249 lb Body Mass Index 32.0 kg/m^2 Results [...] 9:50am 43 U/L N 30-110 Anion Gap May 31, 2014 9:50am 10 MEQ/L N 5-15 COMMENT [facility] WILL CALL Aspartate Amino Transf (AST/SGOT) November 14, 2012 6:15pm 27 U/L N 17- 59 BUN/Creatinine Ratio May 31, 2014 9:50am 25 RATIO N 6-26 COMMENT [facility] WILL CALL Band Neutrophils # May 24, 2014 2:53pm 0.1 T/MM3 - Band Neutrophils % May 24, 2014 2:53pm 2.0 % N 0-6 Basophils # (Auto) May 31, 2014 9:50am 0.0 T/MM3 N 0-0.2 COMMENT [facility] WILL CALL Basophils (%) (Auto) May 31, 2014 9:50am 0.0 % N 0-2 COMMENT [facility] WILL CALL Blood Urea Nitrogen May 31, 2014 9:50am 20.0 MG/DL N 9-20 COMMENT [facility] WILL CALL C-Reactive Protein May 24, 2014 2:53pm 11.0 MG/L H 0-9 Calcium Level May 31, 2014 9:50am 8.6 MG/DL N 8.4-10.2 COMMENT [facility] WILL CALL Calculated Osmolality May 31, 2014 9:50am 276 MOSM/KG N 261-280 COMMENT [facility] WILL CALL Carbon Dioxide Level May 31, 2014 9:50am 26 MEQ/L N 22-30 COMMENT [facility] WILL CALL Chemistry Specimen Hemolysis May 31, 2014 9:50am < 15 0-25 0-25: No Hemolysis.26-70: Slight [...] decrease Phenytoin. Recommend specimen recollection. Chloride Level May 31, 2014 9:50am 104 MEQ/L N 98-107 COMMENT [facility] WILL CALL Conjugated Bilirubin July 03, 2012 9:50am 0.00 MG/DL N 0.00-0.30 Creatine Kinase MB February 03, 2012 3:20am 0.6 NG/ML N 0-3.4 Creatinine May 31, 2014 9:50am 0.8 MG/DL N 0.8-1.5 COMMENT [facility] WILL CALL Eosinophils # (Auto) May 31, 2014 9:50am 0.2 T/MM3 N 0-0.5 COMMENT [facility] WILL CALL Eosinophils # (Manual) May 24, 2014 2:53pm 0.2 T/MM3 N 0-0.5 Eosinophils % (Manual) May 24, 2014 2:53pm 3.0 % N 0-4 Eosinophils (%) (Auto) May 31, 2014 9:50am 3.8 % N 0-4 COMMENT [facility] WILL CALL Erythrocyte Sedimentation Rate May 24, 2014 2:53pm 16 MM/HR H 0-15 Free Thyroxine June 07, 2012 5:10am 1.32 NG/DL N 0.78-2.19 COMMENT USE BLOOD IN LAB Globulin November 14, 2012 6:15pm 3.0 G/DL N 2.4-3.6 Glomerular Filtration Rate Calc May 31, 2014 9:50am 93 - COMMENT [facility] WILL CALL Glucometer May 22, 2014 1:57pm 182 mg/dL H 75-110 Glucose Level May 31, 2014 9:50am 176 MG/DL H 75-110 COMMENT [facility] WILL CALL Hematocrit May 31, 2014 9:50am 36.2 % L 41-53 COMMENT [facility] WILL CALL Hemoglobin May 31, 2014 9:50am 12.1 GM/DL L 13.5-17.5 COMMENT [facility] WILL CALL Icterus Index May 31, 2014 9:50am < 2 0-7 COMMENT [facility] WILL CALL Immature Granulocyte # (Auto) May 31, 2014 9:50am 0.01 T/MM3 N 0.00- 0.03 COMMENT [facility] WILL CALL Immature Granulocyte % (Auto) May 31, 2014 9:50am 0.2 % N 0.0-0.5 COMMENT [facility] WILL CALL Lipase November 14, 2012 6:15pm 102 U/L N 23-300 Lymphocytes # (Auto) May 31, 2014 9:50am 1.4 T/MM3 N 1-4.8 COMMENT [facility] WILL CALL Lymphocytes # (Manual) May 24, 2014 2:53pm 1.4 T/MM3 N 1-4.8 Lymphocytes % (Manual) May 24, 2014 2:53pm 20.0 % L 23-45 Lymphocytes (%) (Auto) May 31, 2014 9:50am 22.1 % L 23-45 COMMENT [facility] WILL CALL Magnesium Level January 23, 2014 5:18am 1.9 MG/DL N 1.6-2.3 Mean Corpuscular Hemoglobin May 31, 2014 9:50am 30.4 UUG N 26-34 COMMENT [facility] WILL CALL Mean Corpuscular Hemoglobin Concent May 31, 2014 9:50am 33.4 GM/DL N 31 -37 COMMENT [facility] WILL CALL Mean Corpuscular Volume May 31, 2014 9:50am 91.0 UM3 N 80-100 COMMENT [facility] WILL CALL Mean Platelet Volume May 31, 2014 9:50am 10.0 UM3 N 9.4-12.4 COMMENT [facility] WILL CALL Monocytes # (Auto) May 31, 2014 9:50am 0.6 T/MM3 N 0-0.8 COMMENT [facility] WILL CALL Monocytes # (Manual) May 24, 2014 2:53pm 0.3 T/MM3 N 0-0.8 Monocytes % (Manual) May 24, 2014 2:53pm 5.0 % N 0-9.0 Monocytes (%) (Auto) May 31, 2014 9:50am 9.1 % H 0-9.0 COMMENT [facility] WILL CALL Neutrophils # (Auto) May 31, 2014 9:50am 4.1 T/MM3 N 1.8-7.7 COMMENT [facility] WILL CALL Neutrophils # (Manual) May 24, 2014 2:53pm 4.8 T/MM3 N 1.8-7.7 Neutrophils % (Manual) May 24, 2014 2:53pm 70.0 % H 33-66 Neutrophils (%) (Auto) May 31, 2014 9:50am 64.8 % N 33-66 COMMENT [facility] WILL CALL Platelet Count May 31, 2014 9:50am 240 T/MM3 N 130-400 COMMENT [facility] WILL CALL Potassium Level May 31, 2014 9:50am 4.4 MEQ/L N 3.6-5 COMMENT [facility] WILL CALL Prothromb Time International Ratio May 31, 2014 9:50am 1.23 H 0.81- 1.09 THERAPUTIC RANGE=2.00-3.00 FOR ANTI-THROMBOSIS THERAPUTIC RANGE=2.50- 3.50 FOR IMPLANTED VALVE RDW Standard Deviation May 31, 2014 9:50am 42.8 FL N 36.9-50.2 COMMENT [facility] WILL CALL Red Blood Count May 31, 2014 9:50am 3.98 M/MM3 L 4.50-5.90 COMMENT [facility] WILL CALL Sodium Level May 31, 2014 9:50am 140 MEQ/L N 134-144 COMMENT [facility] WILL CALL Thyroid Stimulating Hormone (TSH) June 07, 2012 5:10am 2.46 MIU/L N 0.47 -4.68 COMMENT USE BLOOD IN LAB Total Bilirubin November 14, 2012 6:15pm 0.40 MG/DL N 0.20-1.30 Total Creatine Kinase May 16, 2014 10:30am 45 U/L L 55-170 Total Protein November 14, 2012 6:15pm 6.8 G/DL N 6.3-8.2 Troponin I February 03, 2012 9:30am 0.018 ng/ml N 0-0.12 Turbidity May 31, 2014 9:50am < 20 0-20 COMMENT [facility] WILL CALL Unconjugated Bilirubin July 03, 2012 9:50am 0.00 [...] Has specimen been collected/obtained? Y Urine Specific [place] November 14, 2012 7:55pm 1.010 L - [...] 10.33 UG/ML L 15-20 White Blood Count May 31, 2014 9:50am 6.3 T/MM3 N 4.5-11.0 COMMENT [facility] WILL CALL Gram Stain Foot, Non-Surgical Site-Right May 15, 2014 12:00pm Procedures Procedure Status Date Provider(s) Wound debridement completed 05/31/14 CHAVA MASON MD, FACS, CWS Encounters Encounter Location Date/Time Registered [facility] 05/30/14 2:00pm Registered [facility] 05/30/14 8:57am Registered [facility] 05/29/14 8:23am Registered [facility] 05/22/14 1:29pm Registered [facility] 05/16/14 8:55am Registered [facility] 05/15/14 12:18pm Registered [facility] 05/15/14 11:08am Registered [facility] 05/08/14 8:30am Registered [facility] 04/24/14 8:31am Registered [facility] 04/10/14 11:26am Registered [facility] 04/04/14 10:50am Registered [facility] 03/28/14 8:59am Registered [facility] 03/13/14 10:57am Registered [facility] 03/06/14 10:24am
--- OUTSIDE RECORDS SUMMARY | 2017-03-28 08:10 | XMS REPORT | Summary of Care ---
Author Author Robbi Butt M.D. Unknown Address [address] [place] [address] [place] [address] Phone Unavailable Care Team Providers Care Proposal Coordinator Name Role Phone Jeanethdeborahjoselyn Kevin LOTTIE Unavailable Functional Status Functional Status Health Issues* Name Dates Details Functional status health issues are not documented Status: Cognitive Status Health Issues* Name Dates Details Cognitive status health issues are not documented Status: Problems Name Dates Details BPH with obstruction/lower urinary tract symptoms (600.01, N40.1) Status: Active H/O prostate cancer (V10.46, Z85.46) Status: Active H/O therapeutic radiation (V15.3, Z92.3) Status: Active Medications Name Dates Details Warfarin Sodium 5 MG Oral Tablet ActiveVitamin D3 1000 UNIT Oral Tablet * Refills: 0 ActiveOyster Shell Calcium + D 500-125 MG-IU TABS * Refills: 0 ActiveFish Oil CAPS * Refills: 0 ActiveCentrum Silver Oral Tablet Chewable * Refills: 0 ActiveGlucosamine Chondr Complex CAPS * Refills: 0 ActiveSuper B Complex TABS * Refills: 0 ActiveVitamin E 400 UNIT Oral Capsule * Refills: 0 ActiveVitamin C 500 MG Oral Capsule * Refills: 0 ActiveFlonase 50 MCG/ACT Nasal Suspension * Refills: 0 ActiveZyrtec 10 MG TABS * Refills: 0 ActiveBeta Carotene 72734 UNIT Oral Capsule * Refills: 0 ActiveGlipiZIDE 5 MG Oral Tablet * Refills: 0 ActiveMetFORMIN HCl - 500 MG Oral Tablet * Refills: 0 ActiveSimvastatin 80 MG Oral Tablet * Refills: 0 Active Allergies and Adverse Reactions Name Dates Details No Known Allergies Status: Active Past Medical History Name Dates [...] Dates Details Immunizations not documented Family History Father* Name Dates Details Family history of kidney disease (V18.69, Z84.1) Status: Active Brother* Name Dates Details Family history of diabetes mellitus (V18.0, Z83.3) Status: Active Social History Name Dates Details Smoking Status* Never smoker Vital Signs Date Test Result Details 05-Feb-2016 09:42 BP Systolic 124 mm[Hg] Status: BP Diastolic 70 mm[Hg] Status: Heart Rate 63 /min Status: Weight 250 lb Status: Results Date Description Value Details Results not documented Plan of Care Planned Observations* Name Dates Details Planned Goals not documented Goal Planned Encounters* Appointment; Provider: Robbi Butt On 03-Feb-2017 13:15 Instructions * Instructions not documented Encounters Appointment; Robbi Butt Encounter Diagnosis: Problem not documented On 05-Feb-2016 09:30
--- OUTSIDE RECORDS SUMMARY | 2017-03-28 08:24 | XMS REPORT | Continuity of Care Document ---
Author Author [facility] Organization [facility] Address Unknown Phone Unavailable Support Name Relationship Address Phone GINNA MANNING MD Caregiver [address] [place], [place] [phone] CATHLEEN MERCEDES MD Caregiver [address] [facility] [address] [place] [phone] MIGUEL HOGAN Next Of Kin [address] [place] [address] Insurance Providers Payer Name Policy Number Subscriber Name Relationship Medicare [id number] Jeremy Thorpe 20 Self [place] [id number] Jeremy Thorpe 20 Self Advance Directives Directive [...] (at NOON). 01/30/15 Active Fluticasone Propionate 2 [place] EA NOSTRIL DAILY 01/30/15 Active Glipizide 1 Tab PO EVERY EVENING 01/30/15 Active Glipizide 2 Tab PO AM 01/30/15 Active Glucosamine Sulfate 2Kcl 1 Tab PO TWICE A DAY 01/30/15 Active Metformin HCl 500 Mg PO GIVE WITH BREAKFAST 01/30/15 Active [place]-3 Fatty Acids 150 Mg PO TWICE A [...] F (96.8 - 99.1) Temperature (Calculated Celsius) 36.03675 degrees C (36.0 - 37.3) Temperature Source [...] Has specimen been collected/obtained? Y Urine Specific [place] November 14, 2012 7:55pm 1.010 L - [...] 2014 12:00pm Name: JEREMY THORPE Unit #: [id number] : 1930 Sex: M Loc / Svc: [facility] DOS: 01/21/15 Signed Report #: [id number] DIAGNOSTIC IMAGING REPORT TYPE OF EXAM: ESOPHOGRAM [...] MERCEDES MD Encounters Encounter Location Date/Time Registered [facility] 01/21/15 7:55am
--- OUTSIDE RECORDS SUMMARY | 2017-03-28 08:24 | XMS REPORT | Continuity of Care Document ---
Author Author [facility] Organization [facility] Address Unknown Phone Unavailable Support Name Relationship Address Phone GINNA MANNING MD Caregiver [address] [place] [address] KIAH ADAM MD Caregiver [facility] [address] [place] [address] , [address] [place] [address] MIGUEL HOGAN Next Of Kin [address] [place] [address] Insurance Providers Payer Name Policy Number Subscriber Name Relationship Medicare [id number] Jeremy Thorpe 20 Self [place] [id number] Jeremy Thorpe 20 Self Advance Directives Directive [...] SL NEEDED 05/16/13 Active Fluticasone Propionate 2 [place] NS DAILY 01/22/14 Active Glipizide 5 Mg [...] F (96.8 - 99.1) Temperature (Calculated Celsius) 36.72531 degrees C (36.0 - 37.3) Temperature Source [...] Has specimen been collected/obtained? Y Urine Specific [place] November 14, 2012 7:55pm 1.010 L - [...] 2014 12:00pm Name: JEREMY THORPE Unit #: [id number] : 1930 Sex: M Loc / [facility]: [facility] DOS: 05/16/14 Signed Report #: [id number] DIAGNOSTIC IMAGING REPORT TYPE OF EXAM: PICC [...] Then using fluoroscopic guidance, a single lumen 4-Rwandan PICC line was advanced with the tip [...] FACS, CWS Encounters Encounter Location Date/Time Departed [facility] 08/08/14 1:15pm Registered [facility] 07/31/14 9:44am Registered [facility] 07/17/14 8:24am Registered [facility] 07/11/14 8:49am Registered [facility] 07/03/14 8:29am Registered [facility] 06/26/14 8:39am Registered [facility] 06/19/14 8:21am Registered [facility] 06/15/14 9:23am Registered [facility] 06/13/14 9:05am Registered [facility] 06/12/14 8:35am Registered [facility] 06/05/14 8:27am Registered [facility] 05/30/14 8:57am Registered [facility] 05/29/14 8:23am Registered [facility] 05/22/14 1:29pm Discharged [facility] 05/16/14 1:03pm Registered [facility] 05/16/14 8:55am Registered [facility] 05/15/14 12:18pm Registered Clinic [facility] 05/15/14 11:08am
--- OUTSIDE RECORDS SUMMARY | 2017-03-28 08:24 | XMS REPORT | Continuity of Care Document ---
Author Author [facility] Organization [facility] Address Unknown Phone Unavailable Support Name Relationship Address Phone GINNA MANNING MD Caregiver [address] [place] [address] NARESH SANFORD MD Caregiver [facility] [address] [facility] [place], [place] [address] MIGUEL HOGAN Next Of Kin [address] [place] [address] Insurance Providers Payer Name Policy Number Subscriber Name Relationship Medicare [id number] Jeremy Thorpe 20 Self [place] [id number] Jeremy Thorpe 20 Self Problems No known [...] SL NEEDED 05/16/13 Active Fluticasone Propionate 2 [place] DAILY 01/22/14 Active Glipizide 5 Mg [...] F (96.8 - 99.1) Temperature (Calculated Celsius) 35.44403 degrees C (36.0 - 37.3) Temperature Source [...] Has specimen been collected/obtained? Y Urine Specific [place] November 14, 2012 7:55pm 1.010 L - [...] 2014 12:40pm Name: JEREMY THORPE Unit #: [id number] : 1930 Sex: M Loc / Svc: [facility] DOS: 05/16/14 Signed Report #: [id number] DIAGNOSTIC IMAGING REPORT TYPE OF EXAM: PICC [...] Then using fluoroscopic guidance, a single lumen 4-Finnish PICC line was advanced with the tip [...] FACS, CWS Encounters Encounter Location Date/Time Discharged [facility] 06/21/14 3:00pm Registered Clinic [facility] 06/19/14 8:21am Registered Clinic [facility] 06/15/14 9:23am Registered Clinic [facility] 06/13/14 9:05am Registered Clinic [facility] 06/12/14 8:35am Registered Clinic [facility] 06/05/14 8:27am Registered Clinic [facility] 05/30/14 8:57am Registered Clinic [facility] 05/29/14 8:23am Registered Clinic [facility] 05/22/14 1:29pm Registered Clinic [facility] 05/16/14 8:55am Registered Clinic [facility] 05/15/14 12:18pm Registered Clinic [facility] 05/15/14 11:08am Registered Clinic [facility] 05/08/14 8:30am Registered Clinic [facility] 04/24/14 8:31am Registered Clinic [facility] 04/10/14 11:26am Registered Clinic [facility] 04/04/14 10:50am Registered [facility] 03/28/14 8:59am
--- OUTSIDE RECORDS SUMMARY | 2017-03-28 08:25 | XMS REPORT | Continuity of Care Document ---
Author Author [facility] Organization [facility] Address Unknown Phone Unavailable Support Name Relationship Address Phone GINNA MANNING MD Caregiver [address] [place] [address] CHAVA MASON FACS, MD Caregiver [address] [place] [address] [address] [place] [address] [phone] MIGUEL HOGAN Next Of Kin [address] [place] [address] Insurance Providers Payer Name Policy Number Subscriber Name Relationship Medicare [id number] Jeremy Thorpe 20 Self [place] [id number] Jeremy Thorpe 20 Self Advance Directives Directive [...] SL NEEDED 05/16/13 Active Fluticasone Propionate 2 [place] NS DAILY 01/22/14 Active Glipizide 5 Mg [...] F (96.8 - 99.1) Temperature (Calculated Celsius) 36.45628 degrees C (36.0 - 37.3) Temperature Source [...] 2014 9:50am 140 MEQ/L N 134-144 COMMENT [facility] WILL CALL Thyroid Stimulating Hormone (TSH) June [...] 31, 2014 9:50am < 20 0-20 COMMENT [facility] WILL CALL Unconjugated Bilirubin July 03, 2012 [...] Has specimen been collected/obtained? Y Urine Specific [place] November 14, 2012 7:55pm 1.010 L - [...] FACS, CWS Encounters Encounter Location Date/Time Registered [facility] 05/30/14 2:00pm Registered [facility] 05/30/14 8:57am Registered [facility] 05/29/14 8:23am Registered [facility] 05/22/14 1:29pm Registered [facility] 05/16/14 8:55am Registered [facility] 05/15/14 12:18pm Registered [facility] 05/15/14 11:08am Registered [facility] 05/08/14 8:30am Registered [facility] 04/24/14 8:31am Registered [facility] 04/10/14 11:26am Registered [facility] 04/04/14 10:50am Registered [facility] 03/28/14 8:59am Registered [facility] 03/13/14 10:57am Registered [facility] 03/06/14 10:24am
[2017-03-28] MEDS ORDERED: ONDANSETRON 4mg/2ml INJECTION IV ONE (08:30)
[2017-03-28] MEDS ORDERED: NORMAL SALINE 500 ML IV ONE ×2 (08:30→09:45)
--- NOTE | 2017-03-28 08:30 | ERPDOC ---
Departure Disposition Decision Date: March 28, 2017 Disposition Decision Time: 10:19 Disposition: 01 DISCHARGED HOME, SELF-CARE Impression Impression Impression: Primary Impression: Diarrhea Diarrhea type: unspecified type Qualified Codes: R19.7 - Diarrhea, unspecified Severity: Moderate Condition: Improved Seen By: Physician only Referrals: GINNA MANNING MD (Family) 2 Days Patient Instructions: Acute Diarrhea (ED) Problems/Meds/Labs Reviewed?: Yes Medications reviewed and manag: Yes Follow up care ordered?: Yes Mental Status: Alert, Oriented HPI - General Medical General Chief Complaint: Nausea,Vomiting,Diarrhea Stated Complaint: FAINT/DIZZY UPSET STOMACH Time Seen by Provider: 08:07 Source: patient Exam Limitations: no limitations HPI - General Medical Initial Comments 46-year-old male presents to the emergency department with a chief complaint of diarrhea. Patient noted onset of symptoms at approximately 1:30 this morning. Patient states that for supper earlier in the evening he consumed a frozen enchilada which did not taste quite right to him. Patient also notes eating a large bowl of chili with extra black beans. Patient denies any pain or discomfort. Patient notes that he has had approximately 8 loose stools without blood or mucus. Patient denies any other complaints or associated symptoms. He was at home when the symptoms began. He does not note any exacerbating or remitting factors. Patient does note feeling slightly light-headed but denies true dizziness. Occurred At: home Onset: Gradual Allergies: Coded Allergies: vancomycin (Verified Allergy, Severe, HIVES, 08/08/14) aspirin (Verified Allergy, Intermediate, HIVES, 08/08/14) Past History Past Medical History Metabolic: diabetes, hypercholesterolemia, hypertension, hypothyroidism, other Cardiac: A-fib, CAD, other Male: other Integumentary: other Surgical History General: tonsils Cardiac: cardiac cath, pacemaker Joint: foot Surgical History Comments Vasectomy, Rectal fistula Family History Family PMH: FOUND: cancer Vaccines Hx Influenza Vaccination: Yes (07/16/14) Hx Pneumococcal Vaccination: Yes (FALL 2010) Social History Smoking Status: Never smoker Substance Use Type: does not use Alcohol Intake: none Review of Systems Constitutional Constitutional: DENIES: chills, dizziness, fever Eyes General: DENIES: erythema, exudate Lids/Accessories: DENIES: erythema, swelling Vision: DENIES: acuity, blurring ENMT Ears: DENIES: drainage, pain Hearing: DENIES: hearing loss Balance: DENIES: ataxia, falling to one side Sinuses: DENIES: congestion, pain Nose: DENIES: nosebleeds, pain Mouth/Throat: DENIES: painful swallowing, sore throat Teeth: DENIES: pain Jaw: DENIES: pain Cardiovascular Cardiac: DENIES: chest pain, dyspnea on exertion Rhythm/Rate: DENIES: irregular beat, palpitations Vascular: DENIES: pedal edema, unilateral swelling Pulmonary Respiratory: DENIES: cough, dyspnea, pleuritic chest pain, sputum GI Upper Abdomen: DENIES: nausea, pain, vomiting Lower Abdomen: diarrhea, DENIES: blood in stool, pain General: DENIES: burning, dysuria, frequency, urgency Musculoskeletal General: DENIES: joint pain, pain, tenderness Integumentary Skin: DENIES: itching, rash Neurological General: DENIES: change in strength, headache, numbness, weakness Endocrine Endocrine: DENIES: polydipsia, polyphagia Hematologic/Lymphatic Hematologic/Lymphatic: DENIES: frequent nosebleeds, lymphadenopathy Allergic/Immunological Allergic/Immunoligical: DENIES: allergic reactions, hives Physical Exam General General Nourishment: well nourished, well developed, appears stated age, no acute distress, adult General Body Habitus: well groomed Vitals and Pain First Documented Vital Signs Date Time Temp Pulse Resp B/P Pulse Ox O2 Delivery O2 Flow Rate FiO2 03/28/17 08:05 97.6 69 20 129/61 98 Room Air Weight: Kilograms: 112.300 Height (feet): 6 Height (inches): 1.00 Triage Pain Scale: RN VS reviewed by Provider: Yes Normal Exams: Head: Normocephalic w/o trauma Eyes: Pupils are PERRLA w/ EOMI, No scleral icterus, irritation, or foreign bodies noted ENMT: No facial trauma, nasal exudates, pharyngeal erythema, or exudates are noted Dental: No fractured, loose, or missing teeth noted Neck: Full range of motion, without adenopathy, JVD, bruits or thyromegaly Chest/Resp: Clear all roach, with good airflow, and symmetry bilaterally CV: Regular rate and rhythm, without murmur or gallop, Pulses 2+ all extremities, capillary refill, <2 seconds all ext., no pedal edema noted Abdomen: Bowel sounds positive, soft, non-tender, non-distended, no hepatosplenomegaly, masses or bruits noted Lymphatic: No lymphadenopathy, or lymphedema noted Musculoskeletal: No tenderness, or deformity noted, good range of motion, all extremities Integumentary: No rashes, hives, or bruising noted, hair and nails, without abnormality Neurologic: Patient is alert, and oriented, cranial nerves, motor/sensory/ cerebellar, exams w/o gross deficits, to observation Psychiatric: Patient exhibits, appropriate attention, emotion and affect Differential Diagnoses Considering: Medication Effect, Metabolic, Other (food poisoning/diarrhea.) Progress Results/Orders Orders Procedure Category Date Status Time Cbc W/Auto LAB 03/28/17 Complete Diff-Reflex Manual Cmp - Comprehensive LAB 03/28/17 Complete Metabolic Lipase LAB 03/28/17 Complete Ua, Dip Wreflex LAB 03/28/17 Complete Microsc & Metal Spray Operator 08:24 EKG EKG 03/28/17 Logged Iv Lock (Ed Only) EDM 03/28/17 Transmitted 08:24 Normal Saline (Ns) PHA 03/28/17 Complete 08:30 Ondansetron Inj PHA 03/28/17 Complete (Zofran) 08:30 INR LAB 03/28/17 Complete Troponin I W LAB 03/28/[address] Abd/Pelvis W/O CT 03/28/17 Resulted Contrast 08:58 Normal Saline (Ns) PHA 03/28/17 Complete 09:45 Lab Results Laboratory Tests Test 03/28/17 08:13 03/28/17 08:50 03/28/17 09:37 Glucometer 287mg/dL White Blood Count 11.8T/MM3 Red Blood Count 3.97M/MM3 Hemoglobin 12.2GM/DL Hematocrit 35.6% Mean Corpuscular Volume 89.7UM3 Mean Corpuscular Hemoglobin 30.7UUG Mean Corpuscular Hemoglobin Concent 34.3GM/DL RDW Standard Deviation 42.2FL Platelet Count 191T/MM3 Mean Platelet Volume 10.3UM3 Immature Granulocyte % (Auto) 0.2% Neutrophils (%) (Auto) 83.5% Lymphocytes (%) (Auto) 9.1% Monocytes (%) (Auto) 5.4% Eosinophils (%) (Auto) 1.8% Basophils (%) (Auto) 0.0% Absolute Immature Granulocyte (auto 0.02T/MM3 Absolute Neutrophils (auto) 9.9T/MM3 Absolute Lymphocytes (auto) 1.1T/MM3 Absolute Monocytes (auto) 0.6T/MM3 Absolute Eosinophils (auto) 0.2T/MM3 Absolute Basophils (auto) 0.0T/MM3 Prothromb Time International Ratio 3.53 Turbidity < 20 Sodium Level 139MEQ/L Potassium Level 4.7MEQ/L Chloride Level 107MEQ/L Carbon Dioxide Level 24MEQ/L Anion Gap 8MEQ/L Blood Urea Nitrogen 26.0MG/DL Creatinine 1.0MG/DL Glomerular Filtration Rate Calc 71 BUN/Creatinine Ratio 26RATIO Glucose Level 310MG/DL Calculated Osmolality 285MOSM/KG Calcium Level 8.8MG/DL Total Bilirubin 0.40MG/DL Icterus Index < 2 Aspartate Amino Transf (AST/SGOT) 21U/L Alanine Aminotransferase (ALT/SGPT) 43U/L Alkaline Phosphatase 60U/L Troponin I < 0.012ng/ml Total Protein 5.9G/DL Albumin 3.8G/DL Globulin 2.1G/DL Albumin/Globulin Ratio 1.8RATIO Lipase 122U/L Chemistry Specimen Hemolysis < 15 Urine Collection Type Cleancatch-midstream Urine Color Yellow Urine Turbidity Clear Urine pH 5.0 Urine Specific [place] 1.025 Urine Protein Negative Urine Glucose (UA) 1+ Urine Ketones Trace Urine Blood Negative Urine Nitrite Negative Urine Bilirubin Negative Urine Urobilinogen 0.2EU/DL Urine Leukocyte Esterase Negative Urinalysis Comment Microscopic not ind. Medications Current ED Medications Sodium Chloride (NS) 500 ml @ 999 mls/hr Q31M ONCE IV Last administered on 08:35; Start 03/28/17 at 08:30; Stop 03/28/17 at 09:00; Status DC Ondansetron HCl 4 mg 4 mg O ONCE IV Last administered on 03/28/17 08:35; Start 03/28/17 at 08:30; Stop 03/28/17 at 08:32; Status DC Sodium Chloride (NS) 500 ml @ 999 mls/hr Q31M ONCE IV Last administered on 10:07; Start 03/28/17 at 09:45; Stop 03/28/17 at 10:15; Status DC Progress Progress Labs / imaging were discussed in detail with the patient and questions are answered. Patient is given IV hydration. Patient is given parental antiemetic medications intravenously. Patient is asymptomatic in the emergency Department. Patient is discharged home in improved condition. patient is to follow up as instructed. Patient is to return to the emergency department if his condition worsens or changes in any manner. Patient is in agreement with the current plan of management. Patient is to follow up as instructed. EKG EKG : Rate: 60-100 Rhythm: other (ventricular paced rhythm.) [place]: normal QRS: normal Intervals: normal ST/T: normal Interpreted by: signing physician CT CT : CT: Abd/Pelvis no contrast Interpretation: Normal KIM GRIFFITH DO March 28, 2017 08:30
[2017-03-28 08:56] LABS: EOSINOPHILS # (AUTO) 0.2 T/MM3 (0-0.5); EOSINOPHILS % (AUTO) 1.8 % (0-4); HCT - HEMATOCRIT 35.6 % (41-53); HGB - HEMOGLOBIN 12.2 GM/DL (13.5-17.5); IMMATURE GRANULOCYTE # (AUTO) 0.02 T/MM3 (0.00-0.03); IMMATURE GRANULOCYTE % (AUTO) 0.2 % (0.0-0.5); LYMPHOCYTES # (AUTO) 1.1 T/MM3 (1-4.8); LYMPHOCYTES % (AUTO) 9.1 % (23-45); MEAN CORPUSCULAR HGB 30.7 UUG (26-34); MEAN CORPUSCULAR HGB CONC(MCHC 34.3 GM/DL (31-37); MEAN CORPUSCULAR VOLUME 89.7 UM3 (80-100); MEAN PLATELET VOLUME 10.3 UM3 (9.4-12.4); MONOCYTES # (AUTO) 0.6 T/MM3 (0-0.8); MONOCYTES % (AUTO) 5.4 % (0-9.0); NEUTROPHILS #(AUTO)-ABSOLUTE 9.9 T/MM3 (1.8-7.7); NEUTROPHILS % (AUTO) 83.5 % (33-66); RED BLOOD COUNT 3.97 M/MM3 (4.50-5.90); WBC - WHITE BLOOD COUNT 11.8 T/MM3 (4.5-11.0)
[2017-03-28 09:03] LABS: INR 3.53 (0.77-1.03); PROTHROMBIN TIME 38.4 SEC (9.48-12.52)
[2017-03-28 09:06] LABS: ALBUMIN 3.8 G/DL (3.5-5.0); ALBUMIN/GLOBULIN RATIO 1.8 RATIO (1.1-2.2); ALKALINE PHOSPHATASE 60 U/L (38-126); ALT (SGPT) 43 U/L (21-72); ANION GAP 8 MEQ/L (5-15); AST (SGOT) 21 U/L (17-59); BUN/CREATININE RATIO 26 RATIO (6-26); CALCIUM 8.8 MG/DL (8.4-10.2); CHLORIDE 107 MEQ/L (98-107); CO2 - CARBON DIOXIDE 24 MEQ/L (22-30); GLOMERULAR FILTRATION RATE 71; GLUCOSE 310 MG/DL (75-110); POTASSIUM 4.7 MEQ/L (3.6-5); SODIUM 139 MEQ/L (134-144); TOTAL PROTEIN 5.9 G/DL (6.3-8.2)
[2017-03-28] MEDS ORDERED: GLUC1CAP14 PO (09:08)
[2017-03-28] MEDS ORDERED: OMEG-77 PO (09:10)
[2017-03-28] MEDS ORDERED: CALC-139 PO (09:11)
[2017-03-28 09:24] LABS: LIPASE 122 U/L (23-300)
--- NOTE | 2017-03-28 09:30 | NUR ---
RETURNED FROM CT
--- NOTE | 2017-03-28 09:40 | NUR ---
VOID PATIENT USES URINAL AT THIS TIME URINE SPECIMEN OBTAINED AND SENT TO LAB
[2017-03-28 09:43] LABS: BLOOD, URINE NEGATIVE (NEGATIVE); COLOR,URINE YELLOW (YELLOW); LEUKOCYTE ESTERASE ,URINE NEGATIVE (NEGATIVE); NITRITE,URINE NEGATIVE (NEGATIVE); UROBILINOGEN,URINE 0.2 EU/DL (NORMAL)
--- NOTE | 2017-03-28 10:26 | DI ---
Indication: ITS.REASON: pain PROCEDURE: CT ABD/PELVIS W/O CONTRAST: Encounter: Initial Comparison: None Technique: Axial CT images were performed through the abdomen and pelvis without intravenous contrast. Coronal and sagittal two-dimensional reformats. Automated Exposure Control and Iterative Reconstruction dose reducing techniques were utilized. Findings: The lung bases are clear. The unenhanced contours of the liver are unremarkable. Minimal sludge in the gallbladder. The spleen, pancreas and adrenal glands are within normal limits. Small right renal cyst. Kidneys are otherwise normal. No abdominal or pelvic lymphadenopathy. Bladder is normal. Small amount of nonspecific free pelvic fluid. Sigmoid diverticulosis without acute diverticulitis. The appendix is normal. Bone windows show degenerative changes in the spine. Impression: No acute disease process seen. There is a preliminary report by [employer] .
[2017-03-28 10:55] VITALS: BP 144/64; PULSE 62; RESP 20; TEMP 97.6; O2SAT 100
== END 2017-03-28 10:55 | disposition home or self-care (01) ==
LOC: ED 08:04
DX: R19.7 Diarrhea, unspecified (principal); R42 Dizziness and giddiness; E11.9 Type 2 diabetes mellitus without complications; I48.91 Unspecified atrial fibrillation; Z79.84 Long term (current) use of oral hypoglycemic drugs; Z79.01 Long term (current) use of anticoagulants
CPT/HCPCS: 36415; 74176; 80053; 81003; 82948; 83690; 84484; 85025; 85610; 93005; 96374; 99284; J2405